=== PATIENT | male | born 1950 | race Caucasian/White ===

== ENCOUNTER → 2024-03-17 07:20 | Outpatient (REF) | payer MEDICARE, OTHER, SELFPAY ==
[2024-03-17 09:11] LABS: % Basophils 0.9 % (0-2); % Immature Granulocytes 0.3 % (0-0.5); % Neutrophils 60.8 % (42.2-75.2); Absolute Basophils 0.1 10^3/uL (0-0.2); Absolute Eosinophils 0.1 10^3/uL (0-0.7); Absolute Monocytes 0.5 10^3/uL (0.1-0.6); Absolute Neutrophils 4.2 10^3/uL (1.4-6.5); Hematocrit 43.1 % (39.0-52.0); Hemoglobin 14.5 g/dL (13.0-18.0); Mean Corp Hgb Conc. 33.6 g/dL (33.0-37.0); Mean Corpuscular Hgb 29.1 pg (27.0-31.0); Mean Corpuscular Volume 86.4 fL (80.0-94.0); Mean Platelet Volume 9.7 fL (7.4-10.4); Nucleated Red Blood Cells % 0 % (-); Platelet Count 243 10^3/uL (130-400); Red Blood Cell Count 4.99 10^6/uL (4.70-6.10); Red Cell Dist. Width 13.6 % (11.5-14.5)
[2024-03-17 09:42] LABS: ALT (SGPT) 29 U/L (0-50); AST (SGOT) 33 U/L (17-59); Albumin 4.6 g/dl (3.5-5.0); Alkaline Phosphatase 63 U/L (38-126); Blood Urea Nitrogen 17 mg/dl (9-20); Calcium 9.9 mg/dl (8.4-10.2); Carbon Dioxide 29 mmol/L (22-30); Chloride 104 mmol/L (98-107); Glucose 95 mg/dl (70-99); Potassium 4.4 mmol/L (3.5-5.1); Sodium 141 mmol/L (135-145); Total Bilirubin 0.8 mg/dl (0.2-1.3); eGFR > 60.00
[2024-03-17 09:46] LABS: Glycohemoglobin (HgbA1c) 5.4 % (4.0-5.6)
[2024-03-17 09:47] LABS: Urine Albumin Trace (Neg - Trace); Urine Bilirubin Negative (Negative); Urine Character Clear (Clear); Urine Color Yellow; Urine Glucose Negative (Negative); Urine Ketone Negative (Negative); Urine Leukocyte Negative (Negative); Urine Nitrite Negative (Negative); Urine Occult Blood Negative (Negative); Urine Specific Gravity 1.025 (<1.030); Urine Urobilinogen Negative (Neg - 1+)
[2024-03-17 09:58] LABS: Vitamin D, 25-OH*** 57.1 ng/mL (30-80)
[2024-03-17 10:12] LABS: PSA, Total - Screen 4.12 ng/ml (0.0-4.0)
== END ==
LOC: REG 07:20
PROVIDERS: ATTENDING PHYSICIAN Internal Medicine Geriatric Medicine
DX: Z00.00 Encounter for general adult medical examination without abnormal findings (principal); E78.2 Mixed hyperlipidemia; I10 Essential (primary) hypertension; R41.3 Other amnesia; M48.062 Spinal stenosis, lumbar region with neurogenic claudication; Z86.010 Personal history of colon polyps; E55.9 Vitamin D deficiency, unspecified; K64.1 Second degree hemorrhoids; Z13.89 Encounter for screening for other disorder; Z86.19 Personal history of other infectious and parasitic diseases; Z12.5 Encounter for screening for malignant neoplasm of prostate
CPT/HCPCS: 36415; 80053; 81003; 82306; 83036; 85025; G0103

== ENCOUNTER → 2024-11-26 07:59 | Outpatient (REF) | payer MEDICARE, OTHER, SELFPAY ==
[2024-11-26 11:34] LABS: HDL Cholesterol 43 mg/dl; LDL Cholesterol, Calculated 85 mg/dl; Total Cholesterol 150 mg/dl (50-199); Triglyceride 112 mg/dl (10-149); Very Low Density Lipoprotein 22 mg/dl (0-30)
== END ==
LOC: REG 07:59
PROVIDERS: ATTENDING PHYSICIAN Internal Medicine Geriatric Medicine
DX: G30.9 Alzheimer's disease, unspecified (principal); E78.2 Mixed hyperlipidemia; I10 Essential (primary) hypertension; R41.3 Other amnesia; M48.062 Spinal stenosis, lumbar region with neurogenic claudication; E55.9 Vitamin D deficiency, unspecified; K64.1 Second degree hemorrhoids; M54.16 Radiculopathy, lumbar region; F41.9 Anxiety disorder, unspecified
CPT/HCPCS: 36415; 80061

== ENCOUNTER → 2025-05-19 08:19 | Outpatient (REF) | payer MEDICARE, OTHER, SELFPAY ==
[2025-05-19 09:16] LABS: Hematocrit 44.3 % (39.0-52.0); Hemoglobin 14.9 g/dL (13.0-18.0); Mean Corp Hgb Conc. 33.6 g/dL (33.0-37.0); Mean Corpuscular Volume 86.5 fL (80.0-94.0); Nucleated Red Blood Cells % 0 % (-); Platelet Count 265 10^3/uL (130-400); Red Cell Dist. Width 13.4 % (11.5-14.5)
[2025-05-19 10:23] LABS: Urine Character Clear (Clear)
[2025-05-19 10:31] LABS: ALT (SGPT) 32 U/L (0-50); AST (SGOT) 31 U/L (17-59); Albumin 4.5 g/dl (3.5-5.0); Alkaline Phosphatase 55 U/L (38-126); Blood Urea Nitrogen 17 mg/dl (9-20); Calcium 9.7 mg/dl (8.4-10.2); Carbon Dioxide 28 mmol/L (22-30); Chloride 104 mmol/L (98-107); Glucose 93 mg/dl (70-99); HDL Cholesterol 48 mg/dl; LDL Cholesterol, Calculated 151 mg/dl; Potassium 4.0 mmol/L (3.5-5.1); Sodium 139 mmol/L (135-145); Total Protein 7.0 g/dl (6.3-8.2); Very Low Density Lipoprotein 35 mg/dl (0-30); eGFR > 60.00
[2025-05-19 10:34] LABS: Vitamin D, 25-OH*** 68.5 ng/mL (30-80)
[2025-05-19 10:47] LABS: PSA, Total - Screen 3.82 ng/ml (0.0-4.0)
[2025-05-19 10:49] LABS: Urine Red Blood Cell 0-2 /HPF (0-2); Urine Squamous Cell 0-2 /LPF (Few); Urine White Cell 0-2 /HPF (0-5)
== END ==
LOC: REG 08:19
PROVIDERS: ATTENDING PHYSICIAN Internal Medicine Geriatric Medicine
DX: E78.2 Mixed hyperlipidemia (principal); G30.9 Alzheimer's disease, unspecified; I10 Essential (primary) hypertension; R41.3 Other amnesia; M48.062 Spinal stenosis, lumbar region with neurogenic claudication; E55.9 Vitamin D deficiency, unspecified; K64.1 Second degree hemorrhoids; M54.16 Radiculopathy, lumbar region; F41.9 Anxiety disorder, unspecified
CPT/HCPCS: 36415; 80053; 80061; 81003; 81015; 82306; 85025; G0103